=== PATIENT | female | born 1985 | race Caucasian/White ===

== ENCOUNTER 2018-05-21 00:03 | Inpatient (IN) | payer MEDICAID ==
[~2018-05-21 00:03] MED LIST: Acetaminophen 325 MG Tab PO PRN; Carboprost Tromethamine 250 MCG/1 ML Amp IM PRN; Lactated Ringers 500 ML IV ONE; Lidocaine 1% 30 ML SDV INJECT PRN; Methylergonovine 0.2 MG/1 ML Amp IM PRN; Misoprostol 400 MCG (4 X 100 MCG TAB) RECTAL PRN; Ondansetron 4 MG/2 ML SDV IV PRN; Sodium Chloride 0.9% 10 ML Syringe FLUSH PRN; Tranexamic Acid 1,000 MG in Sodium Chloride 0.9% 100 ML IV PRN
[2018-05-21] MEDS: Misoprostol 25 MCG (1/4 of 100 MCG) Tab VAG PRN ×2 (00:54→04:58)
[2018-05-21] MEDS: Lactated Ringers 1,000 ML IV SCH ×2 (04:13→10:44)
[2018-05-21] MEDS ORDERED: Misoprostol 50 MCG (1/2 of 100 MCG) Tab VAG PRN (04:45)
[2018-05-21] MEDS ORDERED: Nalbuphine 10 MG/1 ML Vial IV PRN (09:19)
--- NOTE | 2018-05-21 10:49 | OBOUT ---
DATE: 05/21/2018 DATE AND TIME OF NST: Date: 05/21/2018. Time: 0030 hours to 0050 hours. REASON FOR NST: 1. Intrauterine at 39 weeks by 10 and 1/7-week ultrasound. 2. History of shoulder dystocia. Shared decision was made to proceed with induction of labor. 3. Rh negative, RhoGAM given appropriately. 4. Group B streptococcus negative. 5. Maternal anemia with hemoglobin 10.9 upon admission. 6. G4, P2-0-1-2. NST INTERPRETATION: During this time period, heart tone baseline is approximately 130 and there are at least two 15 x 15 beat per minute accelerations making this strip reactive. It is also noted to be reassuring. Tocometer reveals potential of 1 contraction felt by patient. ASSESSMENT: 1. Nonstress test, reactive and reassuring. 2. Tocometer with one contraction. PLAN: Please see admit history and physical done and through Epic updated to include the above and below with a blood pressure 108/75, heart rate 93, temperature 97.6 upon admission with vaginal exam reveals to be 1.5 cm, 25% effaced, -2 station, vertex suspected, and Cytotec 25 mcg placed after proper consent obtained. I did discuss following clinically and closely. The patient understands and agrees with the above treatment plan. Otherwise, review of systems fully reviewed and felt to be noncontributory other than occasional contractions that she has been feeling over the last 24 to 48 hours. [facility] /[id number]
[2018-05-21] MEDS ORDERED: Oxytocin/Normal Saline 30 UNIT/500 ML BAG IV SCH (11:15)
[2018-05-21] MEDS ORDERED: Docusate Sodium 100 MG Cap PO PRN (11:23)
[2018-05-21] MEDS ORDERED: Simethicone 80 MG Tab.Chew PO PRN (11:23)
[2018-05-21] MEDS ORDERED: Oxytocin 10 Units/1 ML SDV IM PRN (11:23)
[2018-05-21] MEDS ORDERED: Benzocaine/Menthol 20%-0.5% Spray 56 GM Canister TOP PRN (11:23)
[2018-05-21] MEDS ORDERED: Sodium Chloride 0.9% 10 ML Syringe FLUSH PRN (11:23)
[2018-05-21] MEDS ORDERED: Zolpidem 5 MG Tab PO PRN (11:23)
[2018-05-21] MEDS ORDERED: Ibuprofen 800 MG Tab PO PRN (11:23)
--- NOTE | 2018-05-21 11:36 | PN ---
DATE: 05/21/2018 SUBJECTIVE: The patient's contractions are getting stronger. OBJECTIVE: heart tones in the 130s to 140s. Acceleration is seen. There is some questionable late deceleration versus variable decelerations in this position and most recently, an early deceleration. Vaginal exam 5-6cm and tocometer reveals contractions every 2 to 4 minutes. ASSESSMENT: Intrauterine at 39 weeks by approximately a 10-week ultrasound with history of shoulder dystocia, rhesus negative, group B Streptococcus negative and maternal anemia in a G4, P2-0-1-2. PLAN: We will continue to follow heart tone status closely. IV fluids have been started, repositioning, as well as O2 given. Plans were discussed with the patient as well. [facility] /[id number] BARBARA
--- NOTE | 2018-05-21 11:45 | PN ---
DATE: 05/21/2018 SUBJECTIVE: The patient's contractions are getting stronger. OBJECTIVE: heart tones in the 120s to 130s range. Tocometer has revealed some contractions every couple of minutes on an average. Vaginal exam reveals her to be 4 cm, 60% effaced, -1 station, and vertex suspected. Artificial rupture of membranes was done after discussion with the patient yielding copious amounts of clear fluid. ASSESSMENT AND PLAN: Intrauterine at 39 weeks by approximately 10- week ultrasound with history of shoulder dystocia and rhesus negative mother with group B streptococcus negative history with maternal anemia, hemoglobin 10.9, G4, P2-0-1-2, now status post Cytotec x2, and artificial rupture of membranes as above. We will follow clinically and closely. [facility] /[id number]
--- NOTE | 2018-05-21 12:52 | PN ---
DATE: 05/21/2018 SUBJECTIVE: The patient is feeling some pressure in her pelvic area/vaginal area. OBJECTIVE: heart tones in the 120s to 130s. Some early decelerations are noted. Tocometer reveals contractions every 1.5 to 3 minutes. Vaginal exam reveals her to be 9 to 9.5 cm with anterior and right-sided rim, vertex suspected, +1 station. ASSESSMENT AND PLAN: Nearing second stage of labor, we will continue to follow clinically and closely. Once complete, most likely we will have the patient start pushing as she has not had much for pain. She received Nubain about a half an hour ago. [facility] /[id number]
--- NOTE | 2018-05-21 15:08 | DEL ---
DATE: 05/21/2018 PREOPERATIVE DIAGNOSES: 1. Intrauterine at 39 weeks by 10 and 1/7-week ultrasound. 2. History of shoulder dystocia with previous . 3. Rhesus negative with RhoGAM given appropriately earlier in the . 4. Group B Streptococcus negative. 5. Maternal anemia with hemoglobin of 10.9 upon admission. 6. G4, P2-0-1-2. POSTOPERATIVE DIAGNOSES: 1. Intrauterine at 39 weeks by 10 and 1/7-week ultrasound, delivered. 2. History of shoulder dystocia with previous . 3. Rhesus negative with RhoGAM given appropriately earlier in the . 4. Group B Streptococcus negative. 5. Maternal anemia with hemoglobin of 10.9 upon admission. 6. G4, P2-0-1-2. 7. Nuchal cord x1, reduced bluntly with delivery. PROCEDURES PERFORMED: Nonstress test and Cytotec x2 with subsequent artificial rupture of membranes and then spontaneous vaginal delivery on 05/21/2018. ANESTHESIA/ANALGESIA: The patient did receive some Nubain in the first stage of labor. ESTIMATED BLOOD LOSS: 400 mL. FINDINGS: Male. scores and weight pending. SUMMARY OF EVENTS: The patient is a 33-year-old, G4, P2-0-1-2, intrauterine at 39 weeks by 10 and 1/7-week ultrasound, admitted on the above date with the above diagnoses, underwent the above procedures with Cytotec x2, then subsequent artificial rupture of membranes. On the morning of 05/21/2018, she rapidly progressed to the second stage of labor. I was called to the room. She was found to be complete. With 2 contractions and pushing, vertex was delivered in an ANDREY presentation with tight nuchal cord noted with rapid delivery. Anterior and posterior shoulders, as well as the rest of the delivered and nuchal cord was reduced bluntly with delivery with somersault method. Mouth and nares were suctioned. was resuscitated on the mother's abdomen. Cord was doubly clamped and cut. Then, approximately 10 mL of cord blood was obtained for labs. Placenta was then delivered with gentle cord traction and fundal massage within 5 minutes. Perineum, vagina, and perirectal areas were examined without any tears or lacerations. Fundal massage ensued as well as Pitocin per protocol. Increased amount of bleeding was noted with EBL of 400 mL, which resolved by the time medicines were obtained but not given. Mother and are currently stable at the time of dictation. [facility] /[id number] MTDD
[2018-05-22] MEDS ORDERED: Prenatal Multivitamin with Calcium/Folic Acid/Iron Tab PO SCH (09:00)
--- NOTE | 2018-05-22 13:51 | DISCH ---
ADMIT DIAGNOSES: 1. Intrauterine at 39 weeks by 10 and 1/7-week ultrasound. 2. History of shoulder dystocia with previous . 3. Rhesus negative, RhoGAM given appropriately. 4. Group B Streptococcus negative. 5. Maternal anemia with hemoglobin 10.9 upon admission, requiring multiple iron infusions as intolerance of oral iron earlier in the . 6. 4, para 2-0-1-2. DISCHARGE DIAGNOSES: 1. Intrauterine at 39 weeks by 10 and 1/7-week ultrasound, delivered. 2. History of shoulder dystocia with previous . 3. Rhesus negative, RhoGAM given appropriately. 4. Group B Streptococcus negative. 5. Maternal anemia with hemoglobin 10.9 upon admission, requiring multiple iron infusions as intolerance of oral iron earlier in the . 6. 4, para 2-0-1-2. 7. Nuchal cord x1, reduced bluntly with delivery using somersault method. PROCEDURE PERFORMED: NST, Cytotec x1, artificial rupture of membranes, and spontaneous vaginal delivery on 05/21/2018, per Dr. Fragoso. HISTORY OF PRESENT ILLNESS: Please see H and P. SUMMARY OF HOSPITAL COURSE: The patient was admitted on the above date with the above diagnoses and underwent the above procedures. Went on to have a spontaneous vaginal delivery with rapid progression through her labor yielding a male with scores of 9 and 9, weighing 7 pounds 12 ounces (3525 g). Please see delivery note for further details. EBL was approximately 400 mL. DISCHARGE EVALUATION: Vital signs: Stable. Last temp listed, temperature 98.2, heart rate 77, blood pressure 96/63, respiratory rate 16. Lungs: Clear to auscultation bilaterally. Heart: S1 and S2. Regular rate and rhythm. Pelvic: Firm uterus -2 below umbilicus. Extremities: No peripheral edema. No calf pain. Pending is a discharge CBC. CONDITION ON DISCHARGE COMPARED TO CONDITION ON ADMISSION: Improved. DISCHARGE INSTRUCTIONS: 1. Diet: As tolerated. 2. Activity: No lifting more than 20 pounds. No sit-ups, straining, and pelvic rest for the next 6 weeks with immediate return to fertility discussed with the patient. 3. Reasons to return or go to the emergency room were discussed with the patient in detail including, but not limited to, temperature greater than 100.4, foul-smelling discharge, red hot tender breasts, or increased vaginal bleeding. DISCHARGE MEDICATIONS: 1. [id number] Tylenol or ibuprofen for pain. 2. vitamins x6 weeks. Based on her hemoglobin, may trial some iron at home but most likely we will discontinue on vitamins with iron. I did discuss with the patient in the interim reasons to return or go to the emergency room in regard to her infant and follow up will be set up in 2 days for her infant. FOLLOWUP: Follow up in 6 weeks for for patient. [facility] /[id number]
== END 2018-05-22 12:50 | disposition home or self-care (01) | DRG 775 ==
LOC: DL.OB 00:03 → OBSVTOIN 11:13
PROVIDERS: ADMIT Family Medicine; ATTEND Family Medicine
PROC: 10E0XZZ Delivery of Products of Conception, External Approach (ICD-10-PCS; principal; 2018-05-21)
PROC: 3E0P7VZ Introduction of Hormone into Female Reproductive, Via Natural or Artificial Opening (ICD-10-PCS; 2018-05-21)
PROC: 10907ZC Drainage of Amniotic Fluid, Therapeutic from Products of Conception, Via Natural or Artificial Opening (ICD-10-PCS; 2018-05-21)
DX: O69.1XX0 Labor and delivery complicated by cord around neck, with compression, not applicable or unspecified (principal); O99.02 Anemia complicating childbirth; Z3A.39 39 weeks gestation of pregnancy; Z37.0 Single live birth
CPT/HCPCS: 36415; 59409; 85027; 85460; 86850; 86870; 86900; 86901; A9270-GY; J2300; J2590; J2790; J7120

== ENCOUNTER 2020-03-08 08:05 | Inpatient (IN) | payer OTHER, MEDICAID ==
[~2020-03-08 08:05] MED LIST changes: +Lactated Ringers 1,000 ML IV ONE; +Lactated Ringers 1,000 ML IV SCH; -Lactated Ringers 500 ML IV ONE; -Ondansetron 4 MG/2 ML SDV IV PRN; +Ondansetron 4 MG/2 ML SDV IVPUSH PRN
[2020-03-08] MEDS: Oxytocin/Normal Saline 30 UNIT/500 ML BAG IV SCH ×2 (09:25→16:12)
--- NOTE | 2020-03-08 11:46 | OBOUT ---
DATE: 03/08/2020 DATE AND TIME OF NST: 03/08/2020. 8:10 to 8:30. REASON FOR NST: 1. Intrauterine at 39 and 2/7th weeks by 6 and 5/7th week ultrasound. 2. History of shoulder dystocia. 3. Impaired glucose tolerance. 4. Rh negative. 5. GBS negative. 6. Anemia in with hemoglobin of 9.7 on 02/18/2020, pending upon admission. 7. G5, P3-0-1-3. NST INTERPRETATION: During this time period, heart tone baseline is approximately 130 and at least two 15 x 15 beats per minute accelerations, making this strip reactive and also noted to be reassuring. Tocometer reveals potential 1 contraction. Blood pressure 106/69, heart rate 107, temperature 97.6. ASSESSMENT: 1. Nonstress test, reactive and reassuring. 2. Tocometer without contractions. PLAN: At the current time of dictation, the patient's IV and labs will be drawn. We will do a CBC. Her rapid COVID test came back negative. Most likely, we will proceed with artificial rupture of membranes and Pitocin augmentation if needed. This was discussed with the patient as well as her history of shoulder dystocia and she has since had the child without problems, therefore, we will continue to follow clinically and closely at this point in time. We did discuss risks associated with her history and she understands and agrees. For H and P, please see Epic notes done in conjunction today and updated today with no new changes in history. She does describe some off and on contractions, but she has been describing them over the past 2 weeks. [facility] /[id number]
[2020-03-08] MEDS ORDERED: fentaNYL 100 MCG/2 ML SDV IVPUSH PRN (14:30)
[2020-03-08] MEDS ORDERED: Benzocaine/Menthol 20%-0.5% Spray 56 GM Canister TOP PRN (15:09)
[2020-03-08] MEDS ORDERED: Docusate Sodium 100 MG Cap PO PRN (15:09)
[2020-03-08] MEDS ORDERED: Oxytocin 10 Units/1 ML SDV IM PRN (15:09)
[2020-03-08] MEDS ORDERED: Simethicone 80 MG Tab.Chew PO PRN (15:09)
[2020-03-08] MEDS ORDERED: Zolpidem 5 MG Tab PO PRN (15:09)
[2020-03-08] MEDS ORDERED: Sodium Chloride 0.9% 10 ML Syringe FLUSH PRN (15:09)
[2020-03-08] MEDS ORDERED: Ibuprofen 800 MG Tab PO PRN (15:09)
--- NOTE | 2020-03-08 16:12 | PN ---
DATE: 03/08/2020 SUBJECTIVE: The patient's contractions are getting stronger. OBJECTIVE: Pitocin at 10 milliunits per minute. heart tones in the 130s with accelerations seen. Tocometer reveals contractions every 2 to 3 minutes. Vaginal exam reveals her to be 4 cm, 75% effaced, -1 station, vertex suspected. Artificial rupture of membranes done after discussion with the patient yielding copious amounts of clear fluid. ASSESSMENT: Intrauterine at 39 and 2/7 weeks by 6 and 5/7 weeks ultrasound. History of shoulder dystocia. Impaired glucose tolerance during this as well as Rh negative and GBS negative status with anemia of with hemoglobin in the 9 range upon admission. PLAN: Pitocin has been started as above, it is at 10 milliunits per minute. Artificial rupture of membranes done as above. We will continue to follow clinically and closely at this point in time. The patient understands and agrees with the above treatment plan. [facility] /[id number]
--- NOTE | 2020-03-08 16:50 | PN ---
DATE: 03/08/2020 SUBJECTIVE: The patient has felt a few contractions, she just had one. OBJECTIVE: heart tones in the 130s and reactive and reassuring. Tocometer reveals 2 contractions within approximately a 10-minute period. Vaginal exam reveals to be 2.5 cm, 60% effaced. Initially vertex was applied and then became ballotable with exam, therefore we will proceed as below. ASSESSMENT: Intrauterine at 39 and 2/7th weeks with history of shoulder dystocia, impaired glucose tolerance, Rh negative, and GBS negative during this with anemia of in a G5, P3-0-1-3. PLAN: We will proceed with Pitocin augmentation at this point in time. Follow clinically and closely thereafter and did discuss proceeding with artificial rupture of membranes in the future with good labor pattern. [facility] /[id number]
--- NOTE | 2020-03-08 18:03 | DEL ---
DATE: PREOPERATIVE DIAGNOSES: 1. Intrauterine at 39-2/7 weeks by 6-5/7 weeks' ultrasound. 2. History of shoulder dystocia with spontaneous vaginal delivery after that without complications. 3. Impaired glucose tolerance. 4. Rh negative. 5. Group B Streptococcus negative. 6. Anemia of with hemoglobin of 9.7 upon admission. 7. G5, P 3-0-1-3. POSTOPERATIVE DIAGNOSES: 1. Intrauterine at 39-2/7 weeks by 6-5/7 weeks' ultrasound, delivered. 2. History of shoulder dystocia with spontaneous vaginal delivery after that without complications. 3. Impaired glucose tolerance. 4. Rh negative. 5. Group B Streptococcus negative. 6. Anemia of with hemoglobin of 9.7 upon admission. 7. G5, P 3-0-1-3. 8. Uterine atony requiring increased dose of Pitocin, fundal massage, and Methergine IM x1 given. 9. Small first-degree perineal abrasion, nonbleeding, non-repaired after discussion with the patient. PROCEDURES PERFORMED: NST followed by Pitocin augmentation, artificial rupture membranes, and rapid spontaneous vaginal delivery. ANESTHESIA/ANALGESIA: The patient did receive fentanyl in the first stage of labor. ESTIMATED BLOOD LOSS: 350 mL. FINDINGS: Female, score and weight pending. SUMMARY OF EVENTS: The patient is a 35-year-old, G5, P 3-0-1-3, intrauterine at 39-2/7 weeks by 6-5/7 weeks' ultrasound, history of shoulder dystocia in a distant with impaired glucose tolerance during this as well as Rh negative and GBS negative with anemia of as above who presented for induction of labor. She underwent Pitocin augmentation, then artificial rupture of membranes. She rapidly progressed into the second stage of labor. I was called to the room stat. Upon my arrival, I had a mask on prior to getting into the room due to the COVID situation. I donned sterile gloves and assisted nurse with delivery of half of the baby at the point where her feet were coming out vaginally. She pushed for less than 3 times and was noted to be in a ANDREY presentation upon my entry into the room. Subsequently, mouth and nares were suctioned. Cord was doubly clamped and cut, and was resuscitated on mother's abdomen. Then, approximately 10 mL of cord blood obtained for labs. Placenta was then delivered with gentle cord traction and fundal massage within 5 minutes. Uterine atony was noted. Thereafter, fundal massage ensued as well as Methergine IM x1 given as well as Pitocin increased to 999. Thereafter, bleeding slowed. Perineum, vagina, perirectal areas were then examined with a small first-degree perineal abrasion, nonbleeding, non-repaired after discussion with the patient. Mother and infant are currently stable at time of dictation. [facility] /[id number] [place]BAR[place]
[2020-03-09] MEDS ORDERED: Prenatal Multivitamin with Calcium/Folic Acid/Iron Tab PO SCH (09:00)
--- NOTE | 2020-03-09 09:20 | DISCH ---
ADMIT DIAGNOSES: 1. Intrauterine at 39-2/7 weeks by 6-5/7 weeks' ultrasound. 2. History of shoulder dystocia in previous . 3. Impaired glucose tolerance. 4. Rh negative. 5. Group B Streptococcus negative. 6. Anemia of with hemoglobin 9.7 upon admission. 7. G5, P3-0-1-3. DISCHARGE DIAGNOSES: 1. Intrauterine at 39-2/7 weeks by 6-5/7 weeks' ultrasound. 2. History of shoulder dystocia in previous . 3. Impaired glucose tolerance. 4. Rh negative. 5. Group B Streptococcus negative. 6. Anemia of with hemoglobin 9.7 upon admission. 7. G5, P3-0-1-3. 8. Uterine atony requiring Methergine and increase dose of Pitocin. 9. Small first-degree perineal abrasion, nonbleeding, non-repaired after discussion with the patient. 10.Rapid spontaneous vaginal delivery. 11.Cord blood type was Rh positive/O positive. Therefore, the patient received RhoGAM. 12.Gestational thrombocytopenia with platelets minimally low at 140,000 on date of discharge. PROCEDURES PERFORMED: NST, Pitocin augmentation, artificial rupture of membranes, and rapid spontaneous vaginal delivery per Dr. Fragoso. HISTORY OF PRESENT ILLNESS: Please see H and P. SUMMARY OF HOSPITAL COURSE: The patient was admitted on the above date with the above diagnoses and underwent above procedures, then went on to have a rapid progression through labor and spontaneous vaginal delivery that yielded a female with score 8 and 9, weighing 8 pounds 7 ounces (3840 g). Please see delivery note for further details. There was some uterine atony requiring Methergine and increasing dose of Pitocin. On date of discharge, the patient was tolerating p.o., was ambulating, urinating, passing flatus, and requesting discharge at approximately 24 hours after delivery. OBJECTIVE: Vital Signs: Temperature 97.8, heart 79, blood pressure 110/71, respiratory rate 16. Lungs: Clear to auscultation bilaterally. Heart: S1 and S2. Regular rate and rhythm. Genitourinary: Firm uterus, -2 below umbilicus. Extremities: No peripheral edema. No calf pain. DISCHARGE LABORATORY DATA: White cell count 9.4, hemoglobin 9.7, platelets 139. Predelivery hemoglobin 9.7 as well. CONDITION ON DISCHARGE COMPARED TO CONDITION ON ADMISSION: Improved. DISCHARGE INSTRUCTIONS: 1. Diet: As tolerated. 2. Activity: No lifting more than 20 pounds. No sit-ups or straining. Pelvic rest for the next 6 weeks with immediate return to fertility discussed with the patient. 3. Reasons to return or go to the emergency room were discussed with the patient including temperature greater than 100.4, foul-smelling discharge, red or tender breasts, or increased vaginal bleeding. DISCHARGE MEDICATIONS: [id number] ibuprofen for pain. As the patient cannot tolerate iron, she will increase dietary iron in her diet. She is asymptomatic currently and vital signs have been stable. FOLLOWUP: 6 weeks . I did discuss with parents reason to return or go to the emergency room in regard to her as well as importance of followup and ramifications in regard to her as well. They understand and agree with the above treatment plan. Please see discharge paperwork for further details as well. [facility] /[id number]
== END 2020-03-09 16:30 | disposition home or self-care (01) | DRG 806 ==
LOC: DL.OBCHECK 08:05 → DL.OB 08:12 → OBSVTOIN 14:53
PROVIDERS: ADMIT Family Medicine; ATTEND Family Medicine
PROC: 10E0XZZ Delivery of Products of Conception, External Approach (ICD-10-PCS; principal; 2020-03-08)
PROC: 10907ZC Drainage of Amniotic Fluid, Therapeutic from Products of Conception, Via Natural or Artificial Opening (ICD-10-PCS; 2020-03-08)
DX: O99.02 Anemia complicating childbirth (principal); O99.12 Other diseases of the blood and blood-forming organs and certain disorders involving the immune mechanism complicating childbirth; Z37.0 Single live birth; D69.6 Thrombocytopenia, unspecified; O70.0 First degree perineal laceration during delivery; D64.9 Anemia, unspecified; O62.2 Other uterine inertia; Z3A.39 39 weeks gestation of pregnancy; Z28.82 Immunization not carried out because of caregiver refusal
CPT/HCPCS: 36415; 59409; 85027; 85461; 86850; 86870; 86900; 86901; A9270-GY; J2210; J2405; J2590; J2790; J3010; J7120; U0002

== ENCOUNTER 2021-04-24 18:38 | Emergency (ER) | payer OTHER, MEDICAID ==
--- NOTE | 2021-04-24 19:36 | EDM.PDOC ---
ED HPI GENERAL MEDICAL PROBLEM - General Chief Complaint: Genitourinary Problem Stated Complaint: POSSIBLE UTI Time Seen by Provider: 04/24/21 19:25 Source of Information: Reports: Patient History Limitations: Reports: No Limitations - History of Present Illness INITIAL COMMENTS - FREE TEXT/NARRATIVE: This 36 yo female patient reports to the ED with urinary frequency and dysuria. The patient reports the frequency started about 1 week ago. The patient reports the dysuria that started today. The patient reports no history of similar symptoms in the past. The patient denies any abdominal surgeries. Onset: Today (Dysuria), Gradual (urinary frequency) Duration: Constant, Getting Worse Location: Reports: Abdomen (lower) Quality: Reports: Other ("tingling" and increased pain with urination) Severity: Mild Improves with: Reports: None Worsens with: Reports: None Context: Reports: Other Associated Symptoms: Reports: No Other Symptoms Suprapubic Pain Score (Numeric/FACES): 4 - Related Data Allergies Allergy/AdvReac Type Severity Reaction Status Date / Time iron AdvReac Nausea Verified 03/08/20 09:50 Home Meds: Home Meds . [No Known Home Meds] 03/08/20 [History] Past Medical History HEENT History: Reports: Other (See Below) Other HEENT History: hx acute tonsillitis Cardiovascular History: Reports: None Respiratory History: Reports: None Gastrointestinal History: Reports: None Genitourinary History: Reports: None [employer] History: Reports: Musculoskeletal History: Reports: None Neurological History: Reports: None Psychiatric History: Reports: None Endocrine/Metabolic History: Reports: None Hematologic History: Reports: Anemia Immunologic History: Reports: None Oncologic (Cancer) History: Reports: None Dermatologic History: Reports: None - Infectious Disease History Infectious Disease History: Reports: None - Past Surgical History Head Surgeries/Procedures: Reports: None HEENT Surgical History: Reports: Other (See Below) Other HEENT Surgeries/Procedures: Eustachian tube dysfunction Social & Family History - Family History Family Medical History: No Pertinent Family History - Tobacco Use Tobacco Use Status *Q: Never Tobacco User - Caffeine Use Caffeine Use: Reports: Coffee - Recreational Drug Use Recreational Drug Use: No - Living Situation & Occupation Living situation: Reports: , with Family ED ROS GENERAL - Review of Systems Review Of Systems: Comprehensive ROS is negative, except as noted in HPI. ED EXAM, RENAL/ - Physical Exam Exam: See Below Exam Limited By: No Limitations General Appearance: Alert, WD/WN, Mild Distress Eye Exam: Bilateral Eye: EOMI, Normal Inspection, PERRL Ears: Normal External Exam, Normal Canal, Hearing Grossly Normal, Normal TMs Nose: Normal Inspection, Normal Mucosa, No Blood Throat/Mouth: Normal Inspection, Normal Lips, Normal Teeth, Normal Gums, Normal Oropharynx, Normal Voice, No Airway Compromise Head: Atraumatic, Normocephalic Neck: Normal Inspection, Supple, Non-Tender, Full Range of Motion Respiratory/Chest: No Respiratory Distress, Lungs Clear, Normal Breath Sounds, No Accessory Muscle Use, Chest Non-Tender Cardiovascular: Normal Peripheral Pulses, Regular Rate, Rhythm, No Edema, No Gallop, No JVD, No Murmur, No Rub GI/Abdominal: Normal Bowel Sounds, Soft, No Organomegaly, No Distention, No Abnormal Bruit, No Mass, Pelvis Stable, Tender (lower abdomen) (Female) Exam: Deferred Rectal (Female) Exam: Deferred Back Exam: Other (diffuse lower back tenderness) Extremities: Normal Inspection, Normal Range of Motion, Non-Tender, Normal Capillary Refill, No Pedal Edema Neurological: Alert, Oriented, CN II-XII Intact, Normal Cognition, Normal Gait, Normal Reflexes, No Motor/Sensory Deficits Psychiatric: Normal Affect, Normal Mood Skin Exam: Warm, Dry, Intact, Normal Color, No Rash Lymphatic: No Adenopathy Course - Vital Signs Last Recorded V/S: Last Vital Signs Temp 97.1 F 04/24/21 19:13 Pulse 78 04/24/21 19:13 Resp 18 04/24/21 19:13 BP 119/63 04/24/21 19:13 Pulse Ox 100 04/24/21 19:13 - Orders/Labs/Meds Labs: Laboratory Tests 04/24/21 04/24/21 04/24/21 Range/Units 19:05 19:05 19:45 WBC 5.0 (5.0-10.0) 10^3/uL RBC 4.26 (4.2-5.4) 10^6/uL Hgb 12.2 D (12.0-16.0) g/dL Hct 37.1 (37.0-47.0) % MCV 87.1 D (80-100) fL MCH 28.6 (27.0-34.0) pg MCHC 32.9 L (33.0-35.0) g/dL Plt Count 237 D (150-450) 10^3/uL Neut % (Auto) 45.0 (42.2-75.2) % Lymph % (Auto) 42.5 (20.5-50.1) % [place] % (Auto) 9.9 H (2-8) % Eos % (Auto) 2.2 (1.0-3.0) % Baso % (Auto) 0.4 (0.0-1.0) % Sodium (136-145) mmol/L Potassium (3.5-5.1) mmol/L Chloride (98-107) mmol/L Carbon Dioxide (21-32) mmol/L Anion Gap (7-13) mEq/L BUN (7-18) mg/dL Creatinine (0.55-1.02) mg/dL Est Cr Clr Drug Dosing mL/min Estimated GFR (MDRD) BUN/Creatinine Ratio (No establ ref range) Glucose (70-99) mg/dL Calcium (8.5-10.1) mg/dL Total Bilirubin (0.2-1.0) mg/dL AST (15-37) U/L ALT (14-59) U/L Alkaline Phosphatase (46-116) U/L Total Protein (6.4-8.2) g/dL Albumin (3.4-5.0) g/dL Globulin Albumin/Globulin Ratio Urine Color Yellow (YELLOW) Urine Appearance Clear (CLEAR) Urine pH 6.0 (5.0-9.0) Ur Specific [place] >= 1.030 (1.005-1.030) Urine Protein Negative (NEGATIVE) Urine Glucose (UA) Negative (NEGATIVE) Urine Ketones Negative (NEGATIVE) Urine Occult Blood Trace-intact H (NEGATIVE) Urine Nitrite Negative (NEGATIVE) Urine Bilirubin Negative (NEGATIVE) Urine Urobilinogen 0.2 (0.2-1.0) mg/dL Ur Leukocyte Esterase Negative (NEGATIVE) Urine RBC 0-5 /HPF Urine WBC 5-10 H (0-5/HPF) /HPF Ur Epithelial Cells Moderate H (NOT SEEN) /HPF Urine Bacteria Moderate H (0-FEW/HPF) /HPF Urine HCG, Qual Negative 04/24/21 Range/Units 19:45 WBC (5.0-10.0) 10^3/uL RBC (4.2-5.4) 10^6/uL Hgb (12.0-16.0) g/dL Hct (37.0-47.0) % MCV (80-100) fL MCH (27.0-34.0) pg MCHC (33.0-35.0) g/dL Plt Count (150-450) 10^3/uL Neut % (Auto) (42.2-75.2) % Lymph % (Auto) (20.5-50.1) % Walton % (Auto) (2-8) % Eos % (Auto) (1.0-3.0) % Baso % (Auto) (0.0-1.0) % Sodium 141 (136-145) mmol/L Potassium 3.9 (3.5-5.1) mmol/L Chloride 106 (98-107) mmol/L Carbon Dioxide 28 (21-32) mmol/L Anion Gap 10.9 (7-13) mEq/L BUN 10 (7-18) mg/dL Creatinine 0.75 (0.55-1.02) mg/dL Est Cr Clr Drug Dosing 91.27 mL/min Estimated GFR (MDRD) > 60 BUN/Creatinine Ratio 13.3 (No establ ref range) Glucose 102 H (70-99) mg/dL Calcium 8.9 (8.5-10.1) mg/dL Total Bilirubin 0.2 (0.2-1.0) mg/dL AST 16 (15-37) U/L ALT 29 (14-59) U/L Alkaline Phosphatase 46 (46-116) U/L Total Protein 7.0 (6.4-8.2) g/dL Albumin 3.5 (3.4-5.0) g/dL Globulin 3.5 Albumin/Globulin Ratio 1.0 Urine Color (YELLOW) Urine Appearance (CLEAR) Urine pH (5.0-9.0) Ur Specific [place] (1.005-1.030) Urine Protein (NEGATIVE) Urine Glucose (UA) (NEGATIVE) Urine Ketones (NEGATIVE) Urine Occult Blood (NEGATIVE) Urine Nitrite (NEGATIVE) Urine Bilirubin (NEGATIVE) Urine Urobilinogen (0.2-1.0) mg/dL Ur Leukocyte Esterase (NEGATIVE) Urine RBC /HPF Urine WBC (0-5/HPF) /HPF Ur Epithelial Cells (NOT SEEN) /HPF Urine Bacteria (0-FEW/HPF) /HPF Urine HCG, Qual Meds: Medications Discontinued Medications Generic Name Dose Route Start Last Admin Trade Name Sly PRN Reason Stop Dose Admin Cephalexin 500 mg 04/24/21 20:18 Cephalexin 500 Mg Cap PO 04/24/21 20:19 ONETIME ONE Departure - Departure Time of Disposition: 20:20 Disposition: Home, Self-Care 01 Condition: Fair Clinical Impression: UTI, Urinary tract infectious disease - Discharge Information *PRESCRIPTION DRUG MONITORING PROGRAM REVIEWED*: Not Applicable *COPY OF PRESCRIPTION DRUG MONITORING REPORT IN PATIENT DOROTEO: Not Applicable Instructions: Urinary Tract Infection, Adult, [id number] Forms: ED Department Discharge Care Plan Goals: The patient was advised of the examination and lab results during the visit. The patient was given an oral dose of Keflex while in the ED. The patient was discharged with a script for Keflex (500 mg) #6 to take 1 by mouth 2 times per day for 3 days. The patient was encouraged to increase her oral fluid intake. If the patient has any additional symptoms or concerns, the patient should follow- up with her primary care facility or return to the emergency department. Sepsis Event Note (ED) - Evaluation Sepsis Screening Result: No Definite Risk - Focused Exam Vital Signs: Vital Signs Temp Pulse Resp BP Pulse Ox 04/24/21 19:13 97.1 F 78 18 119/63 100
[2021-04-24 20:05] LABS: ANION GAP 10.9 mEq/L (7-13); CHLORIDE,CL 106 mmol/L (98-107); SODIUM,NA 141 mmol/L (136-145)
[2021-04-24] MEDS ORDERED: Cephalexin 500 MG Cap PO ONE (20:18)
== END 2021-04-24 20:24 | disposition home or self-care (01) ==
LOC: DL.ED 18:38
DX: N39.0 Urinary tract infection, site not specified (principal); Z91.048 Other nonmedicinal substance allergy status
CPT/HCPCS: 36415; 80053; 81001; 81025; 85025; 99283; A9270-GY